=== PATIENT | female | born 1980 | race Caucasian/White ===

== ENCOUNTER → 2023-08-26 14:19 | Outpatient (REF) | payer BC, SELFPAY | LOC: HWWDC 14:19 | PROVIDERS: ATTENDING PHYSICIAN Obstetrics & Gynecology; FAMILY PHYSICIAN Registered Nurse | DX: Z12.31 Encounter for screening mammogram for malignant neoplasm of breast (principal) | CPT/HCPCS: 77063; 77067 ==

== ENCOUNTER → 2024-01-30 10:02 | Outpatient (REF) | payer BC, SELFPAY | LOC: WDC 10:02 | PROVIDERS: ATTENDING PHYSICIAN Advanced Practice Midwife | DX: N63.10 Unspecified lump in the right breast, unspecified quadrant (principal); N64.59 Other signs and symptoms in breast | CPT/HCPCS: 76642; 77061; 77065 ==

== ENCOUNTER → 2024-03-05 10:23 | Outpatient (REF) | payer BC, SELFPAY | LOC: MRI 3T 10:23 | PROVIDERS: ATTENDING PHYSICIAN Student in an Organized Health Care Education/Training Program | DX: R22.31 Localized swelling, mass and lump, right upper limb (principal) | CPT/HCPCS: 73223; A9575 ==

== ENCOUNTER → 2024-06-28 07:36 | Outpatient (REF) | payer BC, SELFPAY | LOC: MRI 3T 07:36 | PROVIDERS: ATTENDING PHYSICIAN Student in an Organized Health Care Education/Training Program | DX: R22.31 Localized swelling, mass and lump, right upper limb (principal) | CPT/HCPCS: 71552; A9575 ==

== ENCOUNTER 2024-11-08 06:36 | Day surgery (SDC) | payer BC, SELFPAY | END 2024-11-08 12:18 | disposition home or self-care (01) | LOC: GI 06:36 | PROVIDERS: ATTENDING PHYSICIAN Internal Medicine Gastroenterology | DX: Z12.11 Encounter for screening for malignant neoplasm of colon (principal); R19.4 Change in bowel habit; K64.8 Other hemorrhoids; K57.30 Diverticulosis of large intestine without perforation or abscess without bleeding | CPT/HCPCS: 45380; 88305 ==

== ENCOUNTER → 2024-12-10 10:27 | Outpatient (REF) | payer BC, SELFPAY | LOC: MRI 3T 10:27 | PROVIDERS: ATTENDING PHYSICIAN Surgery; FAMILY PHYSICIAN Student in an Organized Health Care Education/Training Program | DX: M79.3 Panniculitis, unspecified (principal); R22.31 Localized swelling, mass and lump, right upper limb | CPT/HCPCS: 77049; A9585 ==

== ENCOUNTER → 2025-03-28 07:11 | Outpatient (REF) | payer BC, SELFPAY | LOC: HWRCS 07:11 | PROVIDERS: ATTENDING PHYSICIAN Internal Medicine Cardiovascular Disease; FAMILY PHYSICIAN Physician Assistant | DX: R00.2 Palpitations (principal) | CPT/HCPCS: 93306 ==